=== PATIENT | male | born 1950 | race Caucasian/White ===

== ENCOUNTER 2018-02-18 08:52 | Observation (INO) | payer BC, MEDICARE ==
[~2018-02-18] VITALS: Ht 177.8 cm; Wt 82.6 kg
[2018-02-18 08:55] VITALS: BP 167/93
[2018-02-18] MEDS ORDERED: CELEXA20 MG PO (09:03)
[2018-02-18] MEDS ORDERED: BLOOD PRESSURE MED (09:03)
[2018-02-18] MEDS ORDERED: OMEGA-31000 M1 PO (09:04)
[2018-02-18] MEDS ORDERED: CHOLESTEROL MED (09:04)
[2018-02-18] MEDS ORDERED: ASPIR 8181 MG PO (09:04)
[2018-02-18] MEDS ORDERED: CENTRUM SILVER1 EAC2 PO (09:04)
[2018-02-18] MEDS ORDERED: EYE VITAMIN OPHTHALMIC (09:04)
[2018-02-18 09:22] LABS: ABSOLUTE BASOPHILS 0.1 thou/uL (0.0-0.2); ABSOLUTE EOSINOPHILS 0.6 thou/uL (0.0-0.7); ABSOLUTE LYMPHOCYTES 2.7 thou/uL (0.8-5.3); ABSOLUTE MONOCYTES 0.6 thou/uL (0.0-1.2); ABSOLUTE NEUTROPHILS 2.8 thou/uL (1.6-8.1); BASOPHILS 1.2 %; EOSINOPHILS 8.6 %; HEMATOCRIT 44.1 % (42.0-52.0); HEMOGLOBIN 14.7 gm/dL (14.0-18.0); LYMPHOCYTES 40.3 %; MCHC 33.4 g/dL (28.0-37.0); MCV 89.9 fL (80.0-100.0); MONOCYTES 8.6 %; MPV 9.2 fl. (7.2-11.1); NUCLEATED RBCS 0 /100WBC; PLATELET COUNT* 190 thou/uL (150-400); POLYS 41.3 %; RDW-CV 13.1 % (10.5-14.5); WBC 6.8 thou/uL (4.0-11.0)
[2018-02-18 09:30] LABS: ANION GAP 5 mmol/L (7-16); BUN 22 mg/dL (7-18); CALCIUM 8.8 mg/dL (8.5-10.1); CHLORIDE 106 mmol/L (98-107); CO2 33 mmol/L (21-32); CREATININE 0.9 mg/dL (0.6-1.3); GLUCOSE 75 mg/dL (70-99); POTASSIUM 4.2 mmol/L (3.5-5.1); SODIUM 144 mmol/L (136-145)
[2018-02-18 09:40] LABS: ALBUMIN 3.7 g/dL (3.4-5.0); ALKALINE PHOSPHATASE 86 U/L (46-116); APTT 26.1 Seconds (25.0-31.3); LIPASE 726 U/L (73-393); PROTIME 10.2 Seconds (9.20-11.50); SGOT 23 U/L (15-37); SGPT 23 U/L (30-65); TOTAL BILIRUBIN 0.3 mg/dL (<0.1-1.0); TROPONIN-I LEVEL <0.06 ng/mL (<0.06)
--- NOTE | 2018-02-18 10:31 | NUR ---
NOTIFIED DR. GARCIA OF PT'S PAIN AT 3/10 SCALE.
[2018-02-18 14:05] VITALS: BP 154/85
[2018-02-18 14:35] VITALS: BP 160/93
--- NOTE | 2018-02-18 15:07 | EKG ---
[place] [address] ELECTROCARDIOGRAM REPORT Name: SHARON SINHA Room: [address] ADM IN .R.#: [id number] Admission: 02/18/18 Attend Phys: Indio Kothari MD Discharge: Date of : 54 Report #: [id number] THIS REPORT FOR: //name// [facility] ED Test Date: 2018-02-18 Test Time: 08:58:03 Pat Name: SHARON SINHA Department: Room: [facility] Gender: M Senior Software Systems Engineer: SAUNDRA : 1950 Requested By: Jimena Harrison Order Number: [id number] MD: Terry Capps Measurements Intervals [place] Rate: 55 P: 56 VT: 139 QRS: 66 QRSD: 104 T: 66 QT: 433 QTc: 415 Interpretive Statements Sinus rhythm Inferior Q waves noted No previous ECG available for comparison Electronically Signed On 02-18-2018 15:07:11 CDT by Terry Capps [email or web address] <ELECTRONICALLY SIGNED> By: Terry Capps MD, [facility] 02/18/18 1507 D: [id number] Terry Capps MD, FACC /EPI
--- NOTE | 2018-02-18 17:14 | NUR ---
VSS, ASSUMED CARE OF PT FROM ER, BEDSIDE REPORT WAS PERFORMED, PT IS A&O4 AND UP AD KYM ON RA, AND IS TRADCING SR ON THE MONITOR, PT HAS CHEST PRESSURE RATES 3 OUT 10, ASSESSMENT WAS PERFOMRED AND CHARTED, FALL PRECAUTIONS ARE IN PLACE WITH CALL LIGHT IN REACH. PT GOAL IS TO COMPELET ECHO AND HAVE NO CRUSSING CHEST PAIN, WILL FOLLOW WITH PLAN OF CARE.
--- NOTE | 2018-02-18 18:21 | NUR ---
VSS. ASSUMED CARE AT 1500. NSR. CHEST PAIN SUBSIDED TO 3 ON PAIN SCALE. CHEST PAIN DESCRIBED CHEST PRESSURE. CHEST PRESSURE INCREASES WHEN HOB LOWERED TO <45 DEGREES. PT HAS NOT EATEN IN PREP FOR POSSIBLE TESTS. PT IS UP AD KYM WITH BATHROOM PRIVILEGES. LEFT AC SALINE LOCKED. DAUGHTER AND GRAND CHILDREN VISITED IN AFTERNOON. PT MAIN CONCERN IS IN REGARDS TO THE TROPONIN DRAW RRESULTS. PT LEFT WITH NECESSARY ITEMS IN REACH.
[2018-02-18 19:53] VITALS: BP 140/88
[2018-02-18] MEDS ORDERED: PRINIVIL10 MG PO (20:49)
[2018-02-18] MEDS ORDERED: LIPITOR 20 MG T20 M1 PO (20:49)
[2018-02-19 00:25] VITALS: BP 142/78
[2018-02-19 04:47] VITALS: BP 153/90
[2018-02-19 04:50] LABS: HEMATOCRIT 43.3 % (42.0-52.0); HEMOGLOBIN 14.6 gm/dL (14.0-18.0); MCH 29.8 pg (26.0-34.0); MCHC 33.7 g/dL (28.0-37.0); MCV 88.2 fL (80.0-100.0); RBC 4.91 mil/uL (4.50-6.00); WBC 6.6 thou/uL (4.0-11.0)
[2018-02-19 05:07] LABS: ANION GAP 8 mmol/L (7-16); BUN 13 mg/dL (7-18); CALCIUM 8.1 mg/dL (8.5-10.1); CHLORIDE 107 mmol/L (98-107); CHOLESTEROL 168 mg/dL (<200); CO2 26 mmol/L (21-32); CREATININE 0.9 mg/dL (0.6-1.3); GLUCOSE 85 mg/dL (70-99); HDL CHOLESTEROL 40 mg/dL (>40); LDL CHOLESTEROL 92 mg/dL (<100); LIPASE 276 U/L (73-393); MAGNESIUM 1.9 mg/dL (1.8-2.4); POTASSIUM 4.2 mmol/L (3.5-5.1); SODIUM 141 mmol/L (136-145); TC:HDL 4.2 Ratio (Not establshd); TRIGLYCERIDE 183 mg/dL (<150); VLDL 37 mg/dL (<40)
[2018-02-19 05:10] LABS: SERUM ASSESSMENT Clear
--- NOTE | 2018-02-19 06:13 | NUR ---
Pt reports only small amount of chest "pressure." Pt has been NPO except sips of H2O with meds. SB-SR per monitor. VSS. Up ad bree in room, steady gait. Will continue to monitor.
[2018-02-19 08:02] VITALS: BP 160/93
--- NOTE | 2018-02-19 08:34 | 2DMMODE ---
[place] [address] 2 D/M-MODE ECHOCARDIOGRAM Name: SHARON SINHA Room: [address] IN [facility]#: [id number] Admission: 02/18/18 Attend Phys: Indio Kothari, Discharge: Date of : 54 Date of Service: 02/19/18 0834 Report #: [id number] THIS REPORT FOR: //name// APPROVED REPORT Study performed: 02/18/2018 16:54:18 EXAM: Comprehensive 2D, Doppler, and color-flow Echocardiogram Patient Location: In-Patient Room #: [facility] Status: routine BSA: 2.01 HR: 50 bpm BP: 154/85 mmHg Rhythm: NSR Other Information Study Quality: Good Indications Chest Pain 2D Dimensions LVEF(%): 68.09 (>50%) IVSd: 11.99 (7-11mm) LVOT Diam: 20.54 (18-24mm) LVDd: 45.48 mm PWd: 10.62 (7-11mm) Ascending Ao: 33.57 (22-36mm) LVDs: 28.27 (25-40mm) Aortic Root: 33.90 mm Wren's LVEF: 68.09 % Volumes Left Atrial Volume (Systole) LA ESV Index: 18.10 mL/m2 Aortic Valve AoV Peak Shabbir.: 1.05 m/s AO Peak Gr.: 4.42 mmHg LVOT Max P.62 mmHg AO Mean Gr.: 2.18 mmHg LVOT Mean P.46 mmHg LVOT Max V: 0.95 m/s AO V2 VTI: 21.47 cm LVOT Mean V: 0.54 m/s BLAYNE (VTI): 3.27 cm2 LVOT V1 VTI: 21.16 cm Mitral Valve E/A Ratio: 1.06 [place] [address] 2 D/M-MODE ECHOCARDIOGRAM Name: SHARON SINHA Room: [address] IN .R.#: [id number] Admission: 02/18/18 Attend Phys: Indio Kothari, Discharge: Date of : 54 Date of Service: 02/19/18 0834 Report #: [id number] MV Decel. Time: 229.08 ms MV E Max Shabbir.: 0.68 m/s MV PHT: 66.43 ms MVA (PHT): 3.31 cm2 TDI E/Lateral E': 6.80 E/Medial E': 6.18 Medial E' Shabbir.: 0.11 m/s Lateral E' Shabbir.: 0.10 m/s Pulmonary Valve PV Peak Shabbir.: 0.76 m/s PV Peak Gr.: 2.33 mmHg Tricuspid Valve TR Peak Gr.: 19.58 mmHg RVSP: 24.00 mmHg Left Ventricle The left ventricle is normal size. There is normal LV segmental wall motion. There is normal left ventricular wall thickness. Left ventricular systolic function is normal. LVEF is 60-65%. The left ventricular diastolic function is normal. Right Ventricle The right ventricle is normal size. The right ventricular systolic function is normal. Atria The left atrium size is normal. The right atrium size is normal. Aortic Valve The aortic valve is normal in structure. No aortic regurgitation is present. There is no aortic valvular stenosis. Mitral Valve The mitral valve is normal in structure. Mild mitral regurgitation. No evidence of mitral valve stenosis. Tricuspid Valve The tricuspid valve is normal in structure. Mild tricuspid regurgitation. The RVSP is ___24____ mmHg. Pulmonic Valve The pulmonary valve is normal in structure. Trace [place]mon[place] [address] 2 D/M-MODE ECHOCARDIOGRAM Name: SHARON SINHA Room: [address] IN [facility]#: [id number] Admission: 02/18/18 Attend Phys: Indio Kothari, Discharge: Date of : 54 Date of Service: 02/19/18 0834 Report #: [id number] Great Vessels The aortic root is normal in size. IVC is normal in size and collapses with >50% inspiration Pericardium There is no pericardial effusion. <Conclusion> The left ventricle is normal size. There is normal left ventricular wall thickness. Left ventricular systolic function is normal. LVEF is 60-65%. The left ventricular diastolic function is normal. Mild mitral regurgitation. Mild tricuspid regurgitation. The RVSP is ___24____ mmHg. IVC is normal in size and collapses with >50% inspiration <ELECTRONICALLY SIGNED> By: Terry Capps MD, FACC 02/19/1834 3 3 Terry Capps MD, FACC /INF
--- NOTE | 2018-02-19 11:14 | NUR ---
RECIEVED REPORT FROM JOSE AND ASSUMED CARE OF PT @ 9119.PT IS A/O X4,BP ELEVATED AT 160/93.TRACING SINUS ROSA ON MONITOR. LUNG SOUNDS ARE CLEAR.PT STATES LAST BM WAS ON 02/17/18.IV LEFT AC PATENT WITH NS RUNNING @ 100ML/HR.PT IS CALM AND COOPERATIVE WITH NO C/O PAIN AT TIME OF ASSESSMENT.PT IS WAITING TO BE SEEN BY DOCTOR TO SEE WHAT PLAN OF CARE IS.UP AD KYM.PT WAS LEFT RESTING IN BED WITH CALL LIGHT IN PLACE.WILL CONTINUE TO MONITOR.
[2018-02-19 12:00] VITALS: BP 137/86
[2018-02-19] MEDS ORDERED: OMEPRAZOLE20 M2 PO (12:45)
[2018-02-19] MEDS ORDERED: ATORVASTATIN CA40 MG PO (12:45)
[2018-02-19] MEDS ORDERED: NITROGLYCERIN0.4 MG SUBLING (12:50)
[2018-02-19 13:37] VITALS: BP 137/86
--- NOTE | 2018-02-19 14:27 | NUR ---
PT OK FOR D/C.DISCHARGE PAPERWORK GONE OVER AND GIVEN TO PT WITH NEW SCRIPTS. SCRPIT EDUCATION GIVEN.ALL PERSONAL BELONGINGS PACKED AND TAKEN WITH PT.IV D/C.HEART MONITOR REMOVED AND RETURNED TO NURSING STATION.PT WALKED OUT BY NURSING STAFF @ 8112.
== END 2018-02-19 14:20 | disposition home or self-care (01) ==
LOC: M.ERS 08:52 → M.2W 13:10 → M.TBA-ER 13:10 → M.2W 13:10
PROVIDERS: Personal Emergency Response Attendant; ADMIT Internal Medicine
DX: R07.9 Chest pain, unspecified (principal); E78.5 Hyperlipidemia, unspecified; I10 Essential (primary) hypertension; R74.8 Abnormal levels of other serum enzymes; F32.9 Major depressive disorder, single episode, unspecified; Z72.89 Other problems related to lifestyle; Z98.890 Other specified postprocedural states; Z87.891 Personal history of nicotine dependence

== ENCOUNTER 2020-03-11 15:31 | Emergency (ER) | payer BC, MEDICARE ==
[~2020-03-11] VITALS: Ht 177.8 cm; Wt 81.7 kg
[~2020-03-11 15:31] MED LIST: ASPIR 8181 MG PO; ATORVASTATIN CA40 MG PO; BLOOD PRESSURE MED; CELEXA20 MG PO; CENTRUM SILVER1 EAC2 PO; CHOLESTEROL MED; EYE VITAMIN OPHTHALMIC; LIPITOR 20 MG T20 M1 PO; NITROGLYCERIN0.4 MG SUBLING; OMEGA-31000 M1 PO; OMEPRAZOLE20 M2 PO; PRINIVIL10 MG PO
[2020-03-11 15:39] VITALS: BP 123/70
== END 2020-03-11 16:48 | disposition home or self-care (01) ==
LOC: M.ERS 15:31
DX: S61.412A Laceration without foreign body of left hand, initial encounter (principal); I10 Essential (primary) hypertension; E78.5 Hyperlipidemia, unspecified; Z87.891 Personal history of nicotine dependence; W26.8XXA Contact with other sharp object(s), not elsewhere classified, initial encounter; Y93.89 Activity, other specified; Y92.89 Other specified places as the place of occurrence of the external cause; Y99.8 Other external cause status